=== PATIENT | male | born 1985 | race Caucasian/White ===

== ENCOUNTER → 2016-12-22 | Outpatient (CLI) | payer OTHER | LOC: MHCPAIN 09:43 | DX: G89.29 Other chronic pain (principal); M47.817 Spondylosis without myelopathy or radiculopathy, lumbosacral region; M50.90 Cervical disc disorder, unspecified, unspecified cervical region; M53.3 Sacrococcygeal disorders, not elsewhere classified; M54.12 Radiculopathy, cervical region | CPT/HCPCS: G0463 ==